=== PATIENT | female | born 1945 | race Two or more races ===

== ENCOUNTER 2021-11-17 15:49 | Outpatient (CLI) | payer OTHER | END 2021-11-17 16:05 | disposition home or self-care (01) | LOC: RAD 15:49 | PROVIDERS: ATTEND Orthopaedic Surgery | DX: M25.561 Pain in right knee (principal); M25.562 Pain in left knee ==

== ENCOUNTER 2022-02-24 10:24 | Outpatient (CLI) | payer OTHER | END 2022-02-24 11:00 | disposition home or self-care (01) | LOC: MRI 10:24 | PROVIDERS: ATTEND Specialist | DX: M25.511 Pain in right shoulder (principal); M25.512 Pain in left shoulder; M75.121 Complete rotator cuff tear or rupture of right shoulder, not specified as traumatic; M75.122 Complete rotator cuff tear or rupture of left shoulder, not specified as traumatic; M51.36 Other intervertebral disc degeneration, lumbar region; M16.0 Bilateral primary osteoarthritis of hip; M19.041 Primary osteoarthritis, right hand; S93.401A Sprain of unspecified ligament of right ankle, initial encounter; M19.042 Primary osteoarthritis, left hand | CPT/HCPCS: 72148; 73221; 73721 ==

== ENCOUNTER 2022-02-25 11:19 | Outpatient (CLI) | payer OTHER | END 2022-02-25 11:35 | disposition home or self-care (01) | LOC: MRI 11:19 | PROVIDERS: ATTEND Specialist | DX: S93.621A Sprain of tarsometatarsal ligament of right foot, initial encounter (principal); S93.622A Sprain of tarsometatarsal ligament of left foot, initial encounter | CPT/HCPCS: 73721 ==

== ENCOUNTER 2022-08-07 12:26 | Outpatient (CLI) | payer OTHER | END 2022-08-07 12:37 | disposition home or self-care (01) | LOC: RAD 12:26 | DX: R06.02 Shortness of breath (principal); L92.0 Granuloma annulare ==

== ENCOUNTER 2024-09-26 11:37 | Emergency (ER) | payer OTHER ==
[~2024-09-26] VITALS: Ht 152.4 cm; Wt 50.3 kg
[2024-09-26] MEDS ORDERED: PROMETHAZI6.25 MG/5 (12:01)
[2024-09-26] MEDS ORDERED: FAMOtidine 10 MG/ML (4ML VIAL) IV ONE (13:30)
[2024-09-26] MEDS ORDERED: CEFTRIAXONE SODIUM 1,000 MG VIAL IV ONE (13:30)
[2024-09-26] MEDS ORDERED: 0.9 % SODIUM CHLORIDE 1,000 ML IV ONE (13:30)
[2024-09-26] MEDS ORDERED: BENZONATATE 100 MG CAPSULE PO ONE (13:30)
[2024-09-26] MEDS ORDERED: METHYLPREDNISOLONE SOD SUCC 125 MG VIAL IV ONE (13:30)
[2024-09-26] MEDS ORDERED: LEVALBUTEROL HCL 1.25 MG/3 ML SOLUTION IH ONE ×2 (13:30→14:46)
[2024-09-26] MEDS ORDERED: WATER FOR INJ.,BACTERIOSTATIC 30 ML VIAL IJ ONE (13:40)
[2024-09-26] MEDS ORDERED: METHYLPREDNISOLONE SOD SUCC 125 MG VIAL ONE (13:40)
[2024-09-26] MEDS ORDERED: CEFTRIAXONE SODIUM 1,000 MG VIAL ONE (13:41)
[2024-09-26] MEDS ORDERED: FAMOTIDINE/PF 20 MG/2 ML VIAL ONE (13:41)
[2024-09-26 14:42] LABS: COVID-19 AG NEGATIVE (NEGATIVE)
[2024-09-26 14:44] LABS: INR 1.08; PARTIAL THROMBOPLASTIN TIME 27.1 SECONDS (22.0-34.0); PROTHROMBIN TIME 11.7 SECONDS (9.0-11.5)
[2024-09-26 14:45] LABS: INFLUENZA A AG NEGATIVE (NEGATIVE)
[2024-09-26 14:47] LABS: ALBUMIN 3.4 gm/dL (3.4-5.0); BILIRUBIN TOTAL 0.41 mg/dL (0.3-1.2); CALCIUM 9.2 mg/dL (8.5-10.1); CREATININE SERUM 0.76 mg/dL (0.55-1.02); GFR 73.41; GLOBULINA 3.9 G/DL (2.4-3.5); HEMATOCRIT 36.1 % (36.0-45.00); HEMOGLOBIN 12.2 g/dL (12.0-15.00); MEAN CORPUSCULAR HEMOGLOBIN 29.7 pg (27.00-32.0); MEAN CORPUSCULAR HGB CONC 33.8 g/dl (32.0-36.0); PLATELET COUNT 259 K/uL (150-450); POTASSIUM 5.01 mEq/L (3.5-5.1); RED CELL DISTRIBUTION WIDTH 13.7 % (11.5-14.5); TOTAL PROTEIN 7.3 gm/dL (6.4-8.2)
[2024-09-26 14:55] LABS: PH,URINE 6.5 (5.0-8.0); URINE APPEARANCE Cloudy; URINE BILIRRUBIN Negative (NEGATIVE); URINE BLOOD Negative; URINE COLOR Yellow; URINE GLUCOSE Negative (NEGATIVE); URINE KETONE Negative (NEGATIVE); URINE LEUKOCYTE Large; URINE NITRATE Negative; URINE PROTEIN Negative (NEGATIVE); URINE UROBILINOGEN 0.2 E.U./dl
[2024-09-26 14:59] LABS: URINE BACTERIA 58.7 uL (0.0-1933); URINE EPITHELIAL CELLS 9.8 uL (0.0-38.8); URINE RBC 2.3 uL (0.0-20.8); URINE WBC 304.9 uL (0.0-23.2)
[2024-09-26 15:05] LABS: URINE CAST 0.14 uL (0.0-1.40)
[2024-09-26] MEDS ORDERED: BACTRIM DS TAB1 EACH PO (15:28)
[2024-09-26] MEDS ORDERED: LEVALBUTER0.63 MG/3 IH (15:28)
[2024-09-26] MEDS ORDERED: BENZONATATE200 M1 PO (15:28)
[2024-09-26] MEDS ORDERED: PROTONIX40 MG PO (15:28)
== END 2024-09-26 15:47 | disposition home or self-care (01) ==
LOC: ER 11:37
PROVIDERS: General Practice
DX: N39.0 Urinary tract infection, site not specified (principal); R05.9 Cough, unspecified; Z20.822 Contact with and (suspected) exposure to COVID-19; I10 Essential (primary) hypertension; Z88.6 Allergy status to analgesic agent
CPT/HCPCS: 36415; 70450; 71045; 71250; 72125; 72170; 93005; 96365; 99284; J0696; J3490 ×2; J7030

== ENCOUNTER 2024-10-02 09:48 | Emergency (ER) | payer OTHER ==
[~2024-10-02] VITALS: Ht 149.9 cm; Wt 49.9 kg
[~2024-10-02 09:48] MED LIST: BACTRIM DS TAB1 EACH PO; BENZONATATE200 M1 PO; LEVALBUTER0.63 MG/3 IH; PROMETHAZI6.25 MG/5; PROTONIX40 MG PO
[2024-10-02 11:59] LABS: BASO % 0.3 % (0.1-1.2); EOS # 0.92 (0.04-0.54); EOS % 12.8 % (0.7-7.0); HEMATOCRIT 37.2 % (34.1-44.9); HEMOGLOBIN 12.6 g/dL (11.2-15.7); LYMPH # 1.06 (1.18-3.74); LYMPH % 14.7 % (19.3-53.1); MEAN CORPUSCULAR HEMOGLOBIN 28.8 pg (25.6-32.2); MONO # 0.48 (0.24-0.82); MONO % 6.7 % (4.7-12.5); NEUT # 4.67 (1.56-6.13); NEUT % 64.8 % (34.0-71.1); PLATELET COUNT 250 K/uL (163-369); RED BLOOD COUNT 4.38 M/uL (3.93-5.22); RED CELL DISTRIBUTION WIDTH 13.8 % (11.6-14.4)
[2024-10-02] MEDS ORDERED: 0.9 % SODIUM CHLORIDE 1,000 ML IV SCH (12:00)
[2024-10-02 12:07] LABS: ABG PH 7.466 (7.35-7.45); ABG PO2 74.1 mmHg (80-100); ABG pCO2 24.8 mmHg (35-45); BASE EXCESS -4.3 mmol/l; BICARBONATE 17.5 mmol/l (23-25); SaO2 95.5 %; Tco2 18.3 mmol/l
[2024-10-02 12:27] LABS: o2 21 %
[2024-10-02 12:28] LABS: allen test SATISFACTORY; mode ROOM AIR; puncture site RADIAL LEFT
[2024-10-02 13:32] LABS: CALCIUM 8.3 mg/dL (8.5-10.1); CREATININE SERUM 1.13 mg/dL (0.55-1.02); GFR 46.45; POTASSIUM 4.87 mEq/L (3.5-5.1)
[2024-10-02 13:37] LABS: INR 1.15; PARTIAL THROMBOPLASTIN TIME 29.2 SECONDS (22.0-34.0); PROTHROMBIN TIME 12.4 SECONDS (9.0-11.5)
== END 2024-10-02 16:15 | disposition home or self-care (01) ==
LOC: ER 09:48
PROVIDERS: Emergency Medicine
DX: J44.9 Chronic obstructive pulmonary disease, unspecified (principal); M54.50 Low back pain, unspecified; Z88.6 Allergy status to analgesic agent